=== PATIENT | male | born 1975 | race Caucasian/White ===

== ENCOUNTER 2019-05-12 17:11 | Emergency (ER) | payer OTHER ==
[~2019-05-12] VITALS: Ht 177.8 cm; Wt 83.9 kg
[2019-05-12 17:29] VITALS: BP 153/94
[2019-05-12] MEDS ORDERED: ENTIVIO (17:33)
[2019-05-12] MEDS ORDERED: RAYOS5 MG PO (17:33)
[2019-05-12] MEDS ORDERED: PERCOCET 5-3251 EACH PO (17:56)
== END 2019-05-12 18:05 | disposition home or self-care (01) ==
LOC: M.ERS 17:11
DX: R10.31 Right lower quadrant pain (principal); M19.90 Unspecified osteoarthritis, unspecified site; K50.90 Crohn's disease, unspecified, without complications; Z88.6 Allergy status to analgesic agent

== ENCOUNTER 2019-07-07 22:00 | Emergency (ER) | payer OTHER ==
[~2019-07-07] VITALS: Ht 177.8 cm; Wt 83.9 kg
[~2019-07-07 22:00] MED LIST: ENTIVIO; PERCOCET 5-3251 EACH PO; RAYOS5 MG PO
[2019-07-07] MEDS ORDERED: PENICILLIN VK250 MG PO (22:19)
[2019-07-07] MEDS ORDERED: TYLENOL WITH CO1 TA1 PO (22:19)
[2019-07-07 22:28] VITALS: BP 147/91
== END 2019-07-07 22:31 | disposition home or self-care (01) ==
LOC: M.ERS 22:00
DX: K08.89 Other specified disorders of teeth and supporting structures (principal); K50.90 Crohn's disease, unspecified, without complications; M19.90 Unspecified osteoarthritis, unspecified site; Z88.6 Allergy status to analgesic agent; Z88.8 Allergy status to other drugs, medicaments and biological substances

== ENCOUNTER 2019-07-21 08:28 | Inpatient (IN) | payer OTHER ==
[~2019-07-21] VITALS: Ht 177.8 cm; Wt 83.9 kg
--- NOTE | ~2019-07-21 | PROC ---
[facility] [address] [place] [address] PROCEDURE REPORT Name: MARILYN OLEA Room: [address] IN M.R.#: [id number] Admission: 07/21/19 Attend Phys: Anson Lora Discharge: 07/24/19 Date of : 79 Report #: [id number] THIS REPORT FOR: //name// cc: FAM - No family physician/PCP FAM - No family physician/PCP ~ THIS REPORT FOR: //name// For GI report, please see the Provation report in Perceptive 7 content. By: 0648Medical Records Staff [facility] /EM
[~2019-07-21 08:28] MED LIST changes: +PENICILLIN VK250 MG PO; +TYLENOL WITH CO1 TA1 PO
[2019-07-21 08:32] VITALS: BP 117/69
[2019-07-21 08:57] LABS: ABSOLUTE EOSINOPHILS 0.3 thou/uL (0.0-0.7); ABSOLUTE LYMPHOCYTES 0.9 thou/uL (0.8-5.3); ABSOLUTE MONOCYTES 0.7 thou/uL (0.0-1.2); ABSOLUTE NEUTROPHILS 8.2 thou/uL (1.6-8.1); BASOPHILS 0.4 %; EOSINOPHILS 2.5 %; HEMATOCRIT 40.2 % (42.0-52.0); HEMOGLOBIN 13.3 gm/dL (14.0-18.0); LYMPHOCYTES 8.7 %; MCH 24.7 pg (26.0-34.0); MCV 74.8 fL (80.0-100.0); MONOCYTES 7.2 %; MPV 8.5 fl. (7.2-11.1); NUCLEATED RBCS 0 /100WBC; PLATELET COUNT* 281 thou/uL (150-400); POLYS 81.2 %; RBC 5.37 mil/uL (4.50-6.00); RDW-CV 17.2 % (10.5-14.5)
[2019-07-21 09:06] LABS: CALCIUM 8.3 mg/dL (8.5-10.1); CREATININE 1.2 mg/dL (0.6-1.3); POTASSIUM 4.1 mmol/L (3.5-5.1)
[2019-07-21 09:10] LABS: ALBUMIN 3.4 g/dL (3.4-5.0); TOTAL BILIRUBIN 0.6 mg/dL (<0.1-1.0); TOTAL PROTEIN 7.9 g/dL (6.4-8.2)
[2019-07-21 10:49] VITALS: BP 137/90
[2019-07-21 11:12] VITALS: BP 140/83
[2019-07-21 20:00] VITALS: BP 126/88
[2019-07-22 08:25] VITALS: BP 106/57
[2019-07-22 16:00] VITALS: BP 105/67
[2019-07-22 20:00] VITALS: BP 97/52
[2019-07-23 02:08] LABS: HEPATITIS B SURFACE AG Negative (Negative)
[2019-07-23 07:55] VITALS: BP 114/73
[2019-07-23 14:40] LABS: ALBUMIN 3.1 g/dL (3.4-5.0); CALCIUM 8.5 mg/dL (8.5-10.1); CREATININE 1.1 mg/dL (0.6-1.3); POTASSIUM 4.2 mmol/L (3.5-5.1); TOTAL BILIRUBIN 0.3 mg/dL (<0.1-1.0); TOTAL PROTEIN 7.3 g/dL (6.4-8.2)
[2019-07-23 16:00] VITALS: BP 119/67
[2019-07-23 20:10] VITALS: BP 108/63
[2019-07-24 08:00] VITALS: BP 127/87
[2019-07-24] MEDS ORDERED: OMEPRAZOLE40 MG PO (08:23)
[2019-07-24] MEDS ORDERED: PREDNISONE 10 M10 M1 PO (08:23)
[2019-07-24] MEDS ORDERED: NORCO 5-325 TA1 EAC1 PO (08:23)
[2019-07-24] MEDS ORDERED: ZOFRAN ODT4 MG PO (08:23)
[2019-07-24 08:44] VITALS: BP 108/63
--- NOTE | 2019-07-27 13:08 | PATH ---
[address] [address] PATHOLOGY RPT PROCEDURE Name: MARILYN OLEA Room: [address] IN M.R.#: [id number] Admission: 07/21/19 Date of : 79 Discharge: 07/24/19 Report #: [id number] Path Case #: [id number] [facility] Accession Number: [id number] . 01 Material submitted: . PART A: ileum - BIOPSY OF ILEUM PART B: colon - RANDOM COLON BIOPSIES . 01 Clinician provided ICD-10: K56.609 K50.90 . 01 Clinical history: . Crohn's disease. . 02 Diagnosis: A. Biopsy of ileum: - Chronic active ileitis compatible with active Crohn's disease, negative for granulomas, viral inclusions and dysplasia. See comment. . B. Random colon biopsies: - Focal fresh hemorrhage in otherwise normal colonic mucosa. . (HERLINDA:shawna; 07/26/2019) R 07/26/2019 1628 Local . 02 Comment: One of the inflamed fragments of bowel in the ileum biopsy (A) suggests colonic tissue. (HERLINDA:shawna; 07/26/2019) . 02 Electronically signed: . Fran Aguilera MD, Pathologist NPI- [id number] . 01 Gross description: . A. Received in formalin labeled "Marilyn Oela, biopsy of ileum" is a 0.8 x 0.3 x 0.1 cm aggregate of kern-brown soft tissue fragments. The specimen is submitted entirely in A1. . B. Received in formalin labeled "Marilyn Olea, random colon biopsies" is a 0.8 x 0.3 x 0.1 cm aggregate of kern-brown soft tissue fragments. The specimen is submitted entirely in B1. ([facility]; 07/25/2019) [facility] 07/25/2019 1107 Local . 02 Pathologist provided ICD-10: K52.9 . 02 [place] [address] PATHOLOGY RPT PROCEDURE Name: MARILYN OLEA Room: [address] IN [facility]#: [id number] Admission: 07/21/19 Date of : 79 Discharge: 07/24/19 Report #: [id number] Path Case #: [id number] [facility] . [id number], [id number] Specimen Comment: A courtesy copy of this report has been sent to [phone] Specimen Comment: [phone] Specimen Comment: Report sent to / DR DAVIS Performed at: [address], [place], [place] [id number] MD Amos Blanco MD Phone: [phone] Performed at: 02 [facility] [address], [place], [place] [id number] MD Fran Aguilera MD Phone: [phone]
--- NOTE | 2019-08-22 08:28 | CON ---
[address] [address] CONSULTATION Name: MARILYN OLEA Room: [address] IN ..#: [id number] Admission: 07/21/19 Attend Phys: Anson Lora Discharge: 07/24/19 Date of : 79 Report #: [id number] THIS REPORT FOR: //name// cc: JOSEPH Danielle family physician/PCP JOSEPH - No family physician/PCP ~ THIS REPORT FOR: //name// CC: [facility] physician/PCP Casper Merlos DATE OF SERVICE: 07/21/2019 HISTORY OF PRESENT ILLNESS: This is a pleasant 44-year-old gentleman with past medical history significant for Crohn's disease, who gets treatment in [place], who is presenting for evaluation. The patient reports that he was initially diagnosed with Crohn's disease in 1996, initially placed on Pentasa and 6-MP. The patient was subsequently switched over to Remicade and although it worked well his insurance company refused to go to doctor six months. The patient was then switched over to Humira, which he apparently failed and finally, the patient was placed on Entyvio 2 months back. The patient received 3 doses of Entyvio 2 months back and moved to [facility]. However, due to the pandemic situation, cancellation of flights, he was unable to travel back and has been stuck here for the last few months without any medication. PAST MEDICAL HISTORY: The patient has a history of Crohn's disease. PAST SURGICAL HISTORY: The patient had 3 bowel resections for his Crohn's disease. FAMILY HISTORY: Mother has breast cancer, dad with diabetes mellitus. SOCIAL HISTORY: The patient smokes 1-2 cigarettes per day. Reports alcohol a few times a month. Denies recreational drug use. PHYSICAL EXAMINATION: VITAL SIGNS: Temperature 37.2, pulse rate 86, respirations 19, blood pressure 140/83, pulse ox 95%. GENERAL: The patient is alert, awake, oriented x 3. HEENT: Pupils are equal, round, reactive to light and accommodation. Mucous membranes are moist. There is no congestion. LUNGS: Clear to auscultation bilaterally. CARDIOVASCULAR: Rate and rhythm regular, S1, S2 present. ABDOMEN: Soft. There is no distention, guarding or rigidity. EXTREMITIES: Warm. LABORATORY DATA: Hemoglobin 13.3, hematocrit 40.2, platelet count 281, [place] [address] CONSULTATION Name: MARILYN OLEA Room: [address]#: [id number] Admission: 07/21/19 Attend Phys: Anson Lora Discharge: 07/24/19 Date of : 79 Report #: [id number] count 10.0. Sodium 137, potassium 4.1, chloride 102, bicarbonate 29, BUN 12, creatinine 1.2, bilirubin 0.6, AST 29, ALT 26, alkaline phosphatase 106, lipase 115. IMAGING: Abdomen and pelvis CT, this demonstrates post-surgical changes of the more distal small bowel resection with an ileocolonic anastomosis. There is an abnormal mural thickening of the neoterminal ileum with short area of luminal narrowing, which is causing upstream dilation of small bowel, suspicious for active inflammation of Crohn's disease. Focal area of tissue nodularity adjacent to the neoterminal ileum, likely representing inflammatory process, indeterminate right adrenal nodule, distended gallbladder, mild pelvic ascites. ASSESSMENT AND PLAN: Pleasant 44-year-old gentleman with history of ileocolonic Crohn's disease, status post multiple bowel resections. The patient was recently started on Entyvio, received 3 doses and could not take further treatment because he stay out of [place] and has had to travel to the [facility] area. We will need to proceed with colonoscopy to evaluate the extent of the disease and get some biopsies. The patient does want to move here permanently. Therefore, I would recommend starting him on biologic as outpatient. I would like to re-induce him on Remicade if that is possible. For now, I will start the patient on IV steroids to be transitioned to p.o. when his abdominal pain reduces. Thank you for this consultation. <ELECTRONICALLY SIGNED> By: Justo Nolan MD 08/22/19 0828 1517 [id number] Nolan MD /nt
== END 2019-07-24 09:00 | disposition home or self-care (01) | DRG 386 ==
LOC: M.ERS 08:28 → M.TBA-ER 10:12 → M.3W 10:12
PROVIDERS: Family Medicine; Internal Medicine Gastroenterology; ADMIT Internal Medicine; ATTEND Internal Medicine
PROC: 0DBE8ZX Excision of Large Intestine, Via Natural or Artificial Opening Endoscopic, Diagnostic (ICD-10-PCS; principal; 2019-07-23)
DX: K50.012 Crohn's disease of small intestine with intestinal obstruction (principal); R18.8 Other ascites; M19.90 Unspecified osteoarthritis, unspecified site; D64.9 Anemia, unspecified; K63.89 Other specified diseases of intestine; K82.8 Other specified diseases of gallbladder; K40.90 Unilateral inguinal hernia, without obstruction or gangrene, not specified as recurrent; D35.00 Benign neoplasm of unspecified adrenal gland; Z88.8 Allergy status to other drugs, medicaments and biological substances; Z80.3 Family history of malignant neoplasm of breast; Z83.3 Family history of diabetes mellitus; Z90.49 Acquired absence of other specified parts of digestive tract; Z79.899 Other long term (current) drug therapy

== ENCOUNTER 2019-08-22 16:03 | Inpatient (IN) | payer OTHER ==
[~2019-08-22] VITALS: Ht 177.8 cm; Wt 74.8 kg
[~2019-08-22 16:03] MED LIST changes: +NORCO 5-325 TA1 EAC1 PO; +OMEPRAZOLE40 MG PO; +PREDNISONE 10 M10 M1 PO; +ZOFRAN ODT4 MG PO
[2019-08-22 16:07] VITALS: BP 188/86
[2019-08-22] MEDS ORDERED: ONDANSETRON HCL4 M2 PO (16:10)
[2019-08-22 16:42] LABS: ABSOLUTE BASOPHILS 0.1 thou/uL (0.0-0.2); ABSOLUTE EOSINOPHILS 0.2 thou/uL (0.0-0.7); ABSOLUTE LYMPHOCYTES 0.9 thou/uL (0.8-5.3); ABSOLUTE MONOCYTES 0.5 thou/uL (0.0-1.2); ABSOLUTE NEUTROPHILS 3.9 thou/uL (1.6-8.1); BASOPHILS 0.9 %; EOSINOPHILS 4.3 %; HEMATOCRIT 40.5 % (42.0-52.0); HEMOGLOBIN 13.2 gm/dL (14.0-18.0); MCHC 32.7 g/dL (28.0-37.0); MCV 76.4 fL (80.0-100.0); MONOCYTES 8.2 %; MPV 8.7 fl. (7.2-11.1); NUCLEATED RBCS 0 /100WBC; PLATELET COUNT* 278 thou/uL (150-400); POLYS 70.6 %; RDW-CV 18.8 % (10.5-14.5); WBC 5.5 thou/uL (4.0-11.0)
[2019-08-22 16:50] LABS: CALCIUM 8.3 mg/dL (8.5-10.1); CREATININE 1.2 mg/dL (0.6-1.3); POTASSIUM 4.9 mmol/L (3.5-5.1)
[2019-08-22 16:54] LABS: ALBUMIN 3.4 g/dL (3.4-5.0); TOTAL BILIRUBIN 0.4 mg/dL (<0.1-1.0); TOTAL PROTEIN 7.8 g/dL (6.4-8.2)
[2019-08-22 19:47] VITALS: BP 137/86
[2019-08-22 20:00] VITALS: BP 161/103
--- NOTE | 2019-08-23 05:09 | NUR ---
PT A&OX4, ON ROOM AIR, VSS, PT UP AD LUKE, PT NPO AND IV FLUIDS INFUSING ORDERED. PAIN MEDS REQUESTED AND GIVEN ORDERED.
[2019-08-23 07:30] VITALS: BP 121/82
[2019-08-23 11:30] VITALS: BP 128/76
[2019-08-23 15:00] VITALS: BP 125/87
--- NOTE | 2019-08-23 15:18 | CON ---
[address] [address] CONSULTATION Name: MARILYN OLEA Room: [address] IN .R.#: [id number] Admission: 08/22/19 Attend Phys: Franklin Harrison Discharge: Date of : 79 Report #: [id number] THIS REPORT FOR: //name// cc: JOSEPH Danielle family physician/PCP JOSEPH - No family physician/PCP ~ THIS REPORT FOR: //name// CC: JOSEPH physician/PCP Sai Camacho DICTATED BY: Teresa WILSONP DATE OF SERVICE: 08/23/2019 The patient does not have a PCP at this time. REASON FOR CONSULTATION: Crohn's flare, abdominal pain. HISTORY OF PRESENT ILLNESS: This is a 44-year-old male who recently moved here from [place]. The patient was seen on 07/18 with Crohn's flare. He was initially diagnosed with Crohn's back in 1996. He was initially placed on Pentasa and 6-MP. He subsequently switched over to Remicade and he states it was working well for him back in 2011 and then his insurance quit paying for it. He was then switched over to Humira, which apparently he failed and then placed on Entyvio, his last dose being in April prior to leaving [place]. He had received 4 doses as of April and then because of the pandemic and unable to get a flight, he had been without his medication, prompting an admission, the first part of July. At that time, he was placed on prednisone with a taper and underwent a colonoscopy at that time. He states he was doing well on the prednisone. He recently tapered completely off of it a couple of weeks ago and then his pain started back this past week. He had not had a followup in our office and he has not found a PCP as of yet. He was started on Solu-Medrol in the Emergency Room and has continued with that. He is feeling much better. Currently, bowels are moving. He has moved twice a day. He had not had any increase in urgency prior to this admission; however, back when he was doing the Entyvio, he states his bowels were 6-7 up to 10 times a day, still when he just received his fourth dose. ALLERGIES: INCLUDE NSAIDS AND TORADOL. PAST MEDICAL HISTORY: Crohn's disease. PAST SURGICAL HISTORY: He has had 3 bowel resections in the past. FAMILY HISTORY: [place] [address] CONSULTATION Name: MARILYN OLEA Room: [address]#: [id number] Admission: 08/22/19 Attend Phys: Franklin Harrison Discharge: Date of : 79 Report #: [id number] SOCIAL HISTORY: Smokes a couple of cigarettes a day. No alcohol in the last several months and denies any recreational drug use. REVIEW OF SYSTEMS: Twelve-point review of systems is essentially negative except what is mentioned in the HPI. PHYSICAL EXAMINATION: VITAL SIGNS: Temperature 36.7, pulse 91, respirations 18, blood pressure 121/82. HEART: Regular rate and rhythm. LUNGS: Clear. ABDOMEN: Soft, positive bowel sounds in all 4 quadrants with tenderness noted in the right mid to right lower quadrant area. Pain rated 4-5 has significantly improved since his admission and starting the steroids. NEUROLOGIC: The patient is wanting to go home. LABORATORY DATA: In reviewing the last note, it was recommended to get a small bowel follow through as an outpatient. CT on admission showed marked thickening and inflammation of the distal ileum with a large amount of stool. IMPRESSION: 1. Abdominal pain. 2. Change in bowel habits. 3. Crohn's flare. 4. Family history of breast cancer. PLAN: 1. We will increase his diet to clear liquids and advance as tolerated to a low residue. 2. Increase his Solu-Medrol 60 mg IV q. 12 hours. 3. May consider small bowel follow through, possibly tomorrow in a.m. 4. We will discuss with Dr. Nolan further. 5. We will look at benefits of investigation for possible Stelara. 6. The patient will need Prometheus labs upon discharge. Thank you for allowing us to participate in this patient's care. Please do not hesitate to call with any questions in regard to this consult. Agree with above assessment and plan by Teresa Edwards <ELECTRONICALLY SIGNED> By: Justo Nolan MD 08/23/19 1518 1017 [id number] Nolan MD /nt
--- NOTE | 2019-08-23 17:29 | NUR ---
PATIENT HAS DONE WELL TODAY. HE HAD A LARGE FORMED BM THIS MORNING AND HAS ACTIVE BOWEL SOUNDS. NO VOMITING SINCE HE STARTED EATING. HE RECEIVED CLEARS AND IS NOW ON A LOW RESIDUE DIET. HIS WAS HERE MOST OF THE DAY AND HE DID COMPLAIN OF INCREASED PAIN EARLIER AND I PLACED A MESSAGE TO DR MURILLO. HE REFUSED TO GIVE HIM ANY MORE PAIN MEDICATION BECAUSE HE IS PROBABLY GOING HOME TOMORROW. NO DISTRESS HE IS EATING NOW.
[2019-08-23 21:52] VITALS: BP 116/75
--- NOTE | 2019-08-24 05:47 | NUR ---
PATIENT HAS SLEPT OFF AND ON DURING THE NIGHT. VSS ON RA. MEDICATIONS GIVEN ORDERED AND CHARTED. IV PAIN MEDICATIONS GIVEN ORDERED. PATIENT IS UP AD-LUKE. NO NAUSEA OR VOMITING. IV IN LEFT FOREARM-NS @ 100ML/HR. PATIENT INSTRUCTED TO USE CALL LIGHT WHEN NEEDING ASSISTANCE. HOURLY ROUNDS MADE. WILL CONTINUE WITH PLAN OF CARE AND NURSING TO MONITOR.
[2019-08-24 08:56] VITALS: BP 115/81
[2019-08-24] MEDS ORDERED: PREDNISONE 10 M10 MG PO (11:01)
[2019-08-24 11:21] VITALS: BP 115/81
[2019-08-24 11:24] VITALS: BP 115/81
--- NOTE | 2019-08-24 11:39 | NUR ---
PATIENT ONLY HAD ONE PAIN PILL THIS SHIFT FOR PAIN OF 4/10. HE JUST DISCHARGED HOME. HE AND SPOUSE BOTH VERBALIZED UNDERSTANDING OF ALL DISCHARGE INSTRUCTIONS AND THE NEW MEDICATION. I DID PROVIDE THEM WITH THE PHONE NUMBER AND ADDRESS TO [facility] IN [place]. 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 HE DID REFUSE A WHEELCHAIR AND AMBULATED OUT WITH HIS . NO DISTRESS OR COMPLAINTS OF PAIN AT TIME OF DISCHARGE.
== END 2019-08-24 11:43 | disposition home or self-care (01) | DRG 386 ==
LOC: M.ERS 16:03 → M.ORTHSURG 18:08 → M.TBA-ER 18:08 → M.ORTHSURG 19:53
PROVIDERS: Emergency Medicine Emergency Medical Services; ADMIT Internal Medicine; ATTEND Internal Medicine
DX: K50.90 Crohn's disease, unspecified, without complications (principal); K56.609 Unspecified intestinal obstruction, unspecified as to partial versus complete obstruction; I10 Essential (primary) hypertension; M19.90 Unspecified osteoarthritis, unspecified site; Z79.899 Other long term (current) drug therapy; Z88.8 Allergy status to other drugs, medicaments and biological substances; Z03.818 Encounter for observation for suspected exposure to other biological agents ruled out

== ENCOUNTER 2019-10-12 10:59 | Emergency (ER) | payer OTHER ==
[~2019-10-12] VITALS: Ht 177.8 cm; Wt 81.7 kg
[~2019-10-12 10:59] MED LIST changes: +ONDANSETRON HCL4 M2 PO; +PREDNISONE 10 M10 MG PO
[2019-10-12] MEDS ORDERED: [UNRECOGNIZED DRUG - OTHER] (11:09)
[2019-10-12 11:30] LABS: HEMATOCRIT 43.1 % (42.0-52.0); HEMOGLOBIN 13.9 gm/dL (14.0-18.0); MCH 24.8 pg (26.0-34.0); MCHC 32.2 g/dL (28.0-37.0); MCV 77.1 fL (80.0-100.0); MPV 8.8 fl. (7.2-11.1); NUCLEATED RBCS 0 /100WBC; PLATELET COUNT* 258 thou/uL (150-400); RBC 5.59 mil/uL (4.50-6.00)
[2019-10-12 11:48] LABS: ALBUMIN 3.3 g/dL (3.4-5.0); ALKALINE PHOSPHATASE 65 U/L (46-116); ANION GAP 6 mmol/L (7-16); BUN < 1 mg/dL (7-18); CALCIUM 8.2 mg/dL (8.5-10.1); CHLORIDE 100 mmol/L (98-107); CO2 27 mmol/L (21-32); GLUCOSE 114 mg/dL (70-99); LIPASE 120 U/L (73-393); POTASSIUM 4.2 mmol/L (3.5-5.1); SGOT 19 U/L (15-37); SGPT 27 U/L (30-65); SODIUM 133 mmol/L (136-145); TOTAL BILIRUBIN 0.5 mg/dL (<0.1-1.0); TOTAL PROTEIN 7.3 g/dL (6.4-8.2)
[2019-10-12 12:16] LABS: ABSOLUTE LYMPHOCYTES 1.1 thou/uL (0.8-5.3); ABSOLUTE MONOCYTES 0.5 thou/uL (0.0-1.2); ABSOLUTE NEUTROPHILS 13.5 thou/uL (1.6-8.1); PLATELET ESTIMATE ADEQUATE
[2019-10-12 14:02] LABS: URINE BLOOD NEGATIVE (Negative); URINE CLARITY CLEAR; URINE COLOR YELLOW; URINE GLUCOSE-RANDOM NEGATIVE (Negative); URINE KETONES NEGATIVE (Negative); URINE LEUKOCYTES-REFLEX NEGATIVE (Negative); URINE NITRITE-REFLEX NEGATIVE (Negative); URINE PROTEIN NEGATIVE (Negative); URINE SPECIFIC GRAVITY <= 1.005 (1.005-1.030); URINE UROBILINOGEN 0.2 E.U./dl (0.2-1.0)
[2019-10-12] MEDS ORDERED: ZOFRAN ODT4 MG PO (14:02)
[2019-10-12] MEDS ORDERED: NORCO 5-325 TA1 EAC2 PO (14:02)
[2019-10-12 14:06] VITALS: BP 116/74
[2019-10-12 14:06] LABS: ICTOTEST (BILI CONFIRMATORY) Negative (Negative); URINE BILIRUBIN 1+ (Negative)
[2019-10-12 14:29] LABS: AMP/METHAMP Negative (Negative); BARBITURATES Negative (Negative); BENZODIAZEPINES Negative (Negative); COCAINE Negative (Negative); METHADONE Negative (Negative); OPIATES Negative (Negative); PCP Negative (Negative); THC Negative (Negative)
== END 2019-10-12 14:07 | disposition home or self-care (01) ==
LOC: M.ERS 10:59
PROVIDERS: Nurse Practitioner Family
DX: R10.84 Generalized abdominal pain (principal); R10.31 Right lower quadrant pain; K50.90 Crohn's disease, unspecified, without complications; M19.90 Unspecified osteoarthritis, unspecified site; Z88.6 Allergy status to analgesic agent; Z88.8 Allergy status to other drugs, medicaments and biological substances

== ENCOUNTER 2019-11-11 20:50 | Emergency (ER) | payer OTHER ==
[~2019-11-11] VITALS: Ht 177.8 cm; Wt 83.9 kg
[~2019-11-11 20:50] MED LIST changes: +NORCO 5-325 TA1 EAC2 PO; +[UNRECOGNIZED DRUG - OTHER]
[2019-11-11] MEDS ORDERED: TRAMADOL 50 MG50 MG PO (21:02)
[2019-11-11 21:58] LABS: HEMATOCRIT 40.3 % (42.0-52.0); HEMOGLOBIN 13.6 gm/dL (14.0-18.0); MCH 25.6 pg (26.0-34.0); MCHC 33.8 g/dL (28.0-37.0); MCV 75.7 fL (80.0-100.0); NUCLEATED RBCS 0 /100WBC; PLATELET COUNT* 292 thou/uL (150-400); RBC 5.32 mil/uL (4.50-6.00); RDW-CV 18.3 % (10.5-14.5)
[2019-11-11 22:05] LABS: CALCIUM 8.7 mg/dL (8.5-10.1)
[2019-11-11 22:10] LABS: ALBUMIN 3.3 g/dL (3.4-5.0); TOTAL BILIRUBIN 0.3 mg/dL (<0.1-1.0); TOTAL PROTEIN 7.1 g/dL (6.4-8.2)
[2019-11-11 22:29] LABS: ABSOLUTE EOSINOPHILS 0.1 thou/uL (0.0-0.7); ABSOLUTE LYMPHOCYTES 0.5 thou/uL (0.8-5.3); ABSOLUTE MONOCYTES 0.1 thou/uL (0.0-1.2); ABSOLUTE NEUTROPHILS 6.3 thou/uL (1.6-8.1); ANISOCYTOSIS 1+
[2019-11-11 22:30] LABS: MICROCYTES 1+; OVALOCYTES Occasional; PLATELET ESTIMATE ADEQUATE
[2019-11-11 23:48] LABS: URINE BILIRUBIN NEGATIVE (Negative); URINE BLOOD NEGATIVE (Negative); URINE CLARITY CLEAR; URINE COLOR YELLOW; URINE GLUCOSE-RANDOM NEGATIVE (Negative); URINE KETONES NEGATIVE (Negative); URINE LEUKOCYTES-REFLEX NEGATIVE (Negative); URINE NITRITE-REFLEX NEGATIVE (Negative); URINE PROTEIN NEGATIVE (Negative); URINE SPECIFIC GRAVITY 1.025 (1.005-1.030); URINE UROBILINOGEN 0.2 E.U./dl (0.2-1.0)
[2019-11-12] MEDS ORDERED: PERCOCET 5-3251 EACH PO (00:16)
[2019-11-12 00:39] VITALS: BP 140/93
== END 2019-11-12 00:40 | disposition home or self-care (01) ==
LOC: M.ERS 20:50
PROVIDERS: Personal Emergency Response Attendant
DX: K50.90 Crohn's disease, unspecified, without complications (principal); M19.90 Unspecified osteoarthritis, unspecified site; Z88.6 Allergy status to analgesic agent

== ENCOUNTER 2019-11-16 14:03 | Inpatient (IN) | payer OTHER ==
[~2019-11-16] VITALS: Ht 177.8 cm; Wt 83.9 kg
--- NOTE | ~2019-11-16 | CON ---
[address] [address] CONSULTATION Name: MARILYN OLEA Room: [address] IN .R.#: [id number] Admission: 11/16/19 Attend Phys: Royce Vyas, Discharge: Date of : 79 Report #: [id number] THIS REPORT FOR: //name// cc: JOSEPH - No family physician/PCP JOSEPH - No family physician/PCP ~ THIS REPORT FOR: //name// CC: [facility] physician/PCP Royce Vyas DICTATED BY: Teresa Edwards [facility] DATE OF SERVICE: 11/17/2019 PRIMARY CARE PHYSICIAN: The patient does not have a PCP. Please note at the time of this dictation, the patient was seen and physically examined by myself. REASON FOR CONSULTATION: Abdominal pain, history of Crohn's disease. HISTORY OF PRESENT ILLNESS: This is a 44-year-old male who has a longstanding history of Crohn's disease that was diagnosed back in 1996, who started his treatment back in [place] and recently moved to the area. The patient was initially diagnosed with Crohn's disease in 1996. He was placed on Pentasa and 6-MP at that time, subsequently switched over to Remicade. However, it was working well for him, insurance company refused to go to pay for it since he would not go to the doctor. The patient was then switched over to Humira and he apparently failed that, finally was placed on Entyvio prior to moving to the [facility] and with the pandemic, he never went back to get any further medications. His last dose of Entyvio was back in February of this year. He was admitted in July and then again in August and now subsequently the end of October. He had been off of his steroids when he was admitted in July. We were getting him approved for Stelara. He did receive his induction dose of Stelara and then has subsequently got his first injection on 11/12 of his first maintenance dose. He states he was doing well. No issues. Bowels are moving at least once a day. Then, yesterday a.m., he started having some issues. He had some intermittent pain. He did have a normal bowel movement yesterday morning, but none since. He did have vomiting one time with no bright red blood or coffee-ground emesis. He states his stool yesterday was completely normal with no bright red blood or melena noted. He did have the one episode of vomiting and is felt nauseous with bloating. He is not passing any gas at this time. He does describe his pain as being intermittent at this time. His last colon was back in 2018 in [place]. ALLERGIES: [place] [address] CONSULTATION Name: MARILYN OLEA Room: [address] IN M.R.#: [id number] Admission: 11/16/19 Attend Phys: Royce Vyas, Discharge: Date of : 79 Report #: [id number] MEDICATIONS FROM HOME: Stelara. PAST MEDICAL HISTORY: Crohn's in 1996 and arthritis. PAST SURGICAL HISTORY: He has had three small bowel resections noted in the past. FAMILY HISTORY: Mother had breast cancer. Dad with diabetes. SOCIAL HISTORY: He smokes 1-2 cigarettes per day. Alcohol, a few times a month. Denies any recreational drug use. REVIEW OF SYSTEMS: Twelve-point review of systems is essentially negative except what is mentioned in the HPI. PHYSICAL EXAMINATION: VITAL SIGNS: Temperature 36.9, pulse 83, respirations 16, blood pressure 119/82. HEART: Regular rate and rhythm. LUNGS: Clear. ABDOMEN: Soft, positive bowel sounds with some tenderness noted in the mid upper area and bowel sounds are somewhat hypoactive. LABORATORY DATA: Hemoglobin 13.6, white count is 11.9, platelets 273,000. His MCV is low at 75. GFR is 82. LFTs are normal. Lipase was normal at 87. Alcohol is less than 10. IMAGING: CT shows abnormal small bowel distention measuring up to 5 cm consistent with a partial small bowel obstruction with abnormal thickening and inflammatory changes extending along the small bowel wall near the anastomosis. IMPRESSION: 1. Abdominal pain, intermittent. 2. Small bowel obstruction, noted on CT. 3. Intermittent nausea and vomiting. 4. History of Crohn's. Got first Stelara maintenance dose on 11/12. PLAN: 1. Solu-Medrol 62.5 mg IV q.8h. 2. Keep n.p.o. 3. Add ESR, CRP to pending labs that have already been drawn. 4. We will medically observe for now to see if his small bowel obstruction resolves and Surgery will be on board. 5. Further recommendations to be made once Dr. Nolan sees the patient later today. [address] [address] CONSULTATION Name: MARILYN [facility] [id number] Admission: 11/16/19 Attend Phys: Royce Vyas, Discharge: Date of : 79 Report #: [id number] Thank you for allowing us to participate in this patient's care. Please do not hesitate to call with any questions in regard to this consult. By: [id number] Nolan MD /jeanne
[~2019-11-16 14:03] MED LIST changes: +TRAMADOL 50 MG50 MG PO
[2019-11-16 14:11] VITALS: BP 148/102
[2019-11-16 16:41] LABS: ABSOLUTE BASOPHILS 0.1 thou/uL (0.0-0.2); ABSOLUTE EOSINOPHILS 0.3 thou/uL (0.0-0.7); ABSOLUTE LYMPHOCYTES 0.5 thou/uL (0.8-5.3); ABSOLUTE MONOCYTES 0.9 thou/uL (0.0-1.2); BASOPHILS 0.5 %; EOSINOPHILS 2.6 %; HEMOGLOBIN 13.6 gm/dL (14.0-18.0); LYMPHOCYTES 4.6 %; MCH 25.1 pg (26.0-34.0); MCHC 33.2 g/dL (28.0-37.0); MCV 75.5 fL (80.0-100.0); MONOCYTES 7.8 %; MPV 8.6 fl. (7.2-11.1); NUCLEATED RBCS 0 /100WBC; PLATELET COUNT* 273 thou/uL (150-400); POLYS 84.5 %; RBC 5.44 mil/uL (4.50-6.00); RDW-CV 18.6 % (10.5-14.5); WBC 11.9 thou/uL (4.0-11.0)
[2019-11-16 16:55] LABS: CALCIUM 8.2 mg/dL (8.5-10.1); POTASSIUM 3.4 mmol/L (3.5-5.1)
[2019-11-16 16:59] LABS: ALBUMIN 3.3 g/dL (3.4-5.0); TOTAL BILIRUBIN 0.4 mg/dL (<0.1-1.0); TOTAL PROTEIN 6.8 g/dL (6.4-8.2)
[2019-11-16 20:57] VITALS: BP 121/79
[2019-11-16 21:01] VITALS: BP 115/82
[2019-11-17 07:10] VITALS: BP 118/76
[2019-11-17 11:42] LABS: URINE BILIRUBIN NEGATIVE (Negative); URINE BLOOD NEGATIVE (Negative); URINE CLARITY CLEAR; URINE COLOR YELLOW; URINE GLUCOSE-RANDOM NEGATIVE (Negative); URINE KETONES NEGATIVE (Negative); URINE LEUKOCYTES-REFLEX NEGATIVE (Negative); URINE NITRITE-REFLEX NEGATIVE (Negative); URINE PROTEIN NEGATIVE (Negative); URINE UROBILINOGEN 0.2 E.U./dl (0.2-1.0)
[2019-11-17 11:51] LABS: AMP/METHAMP Negative (Negative); BARBITURATES Negative (Negative); BENZODIAZEPINES Negative (Negative); COCAINE Negative (Negative); METHADONE Negative (Negative); OPIATES Negative (Negative); PCP Negative (Negative); THC Negative (Negative)
[2019-11-17 15:54] VITALS: BP 124/80
--- NOTE | 2019-11-17 17:08 | EKG ---
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: : 1975 Requested By: Arelis Roman Order Number: [id number] MD: Otoniel Coker Measurements Intervals [place] Rate: 87 P: 47 WY: 155 QRS: 42 QRSD: 147 T: -3 QT: 417 QTc: 502 Interpretive Statements Sinus rhythm Right bundle branch block Baseline wander in lead(s) V4 No previous ECG available for comparison Electronically Signed On 11-17-2019 17:08:01 CDT by Otoniel Coker [email or web address] <ELECTRONICALLY SIGNED> By: Otoniel Coker MD, [facility] 11/17/19 1708 1533 1533 Otoniel Coker MD, [facility] /EPI
[2019-11-17 19:40] VITALS: BP 121/80
[2019-11-18 05:14] LABS: HEMATOCRIT 38.4 % (42.0-52.0); HEMOGLOBIN 12.9 gm/dL (14.0-18.0); MCH 25.6 pg (26.0-34.0); MCHC 33.6 g/dL (28.0-37.0); MCV 76.1 fL (80.0-100.0); NUCLEATED RBCS 0 /100WBC; PLATELET COUNT* 292 thou/uL (150-400); RBC 5.05 mil/uL (4.50-6.00); RDW-CV 18.1 % (10.5-14.5); WBC 6.5 thou/uL (4.0-11.0)
[2019-11-18 05:19] LABS: CALCIUM 8.4 mg/dL (8.5-10.1); CREATININE 0.9 mg/dL (0.6-1.3); POTASSIUM 4.2 mmol/L (3.5-5.1)
[2019-11-18 07:04] LABS: ABSOLUTE BASOPHILS 0.1 thou/uL (0.0-0.2); ABSOLUTE LYMPHOCYTES 0.4 thou/uL (0.8-5.3); ABSOLUTE MONOCYTES 0.3 thou/uL (0.0-1.2); ABSOLUTE NEUTROPHILS 5.7 thou/uL (1.6-8.1)
[2019-11-18 07:05] LABS: GIANT PLATELETS RARE
[2019-11-18 07:06] LABS: ANISOCYTOSIS 2+; PLATELET ESTIMATE ADEQUATE
[2019-11-18 07:50] VITALS: BP 118/76
[2019-11-18 20:00] VITALS: BP 122/78
[2019-11-19 09:20] VITALS: BP 124/59
[2019-11-19] MEDS ORDERED: HYDROCODON-ACE1 EAC7 PO (10:34)
[2019-11-19] MEDS ORDERED: PREDNISONE 10 M10 MG PO (10:34)
[2019-11-19] MEDS ORDERED: CIPRO500 M1 PO (10:34)
[2019-11-19] MEDS ORDERED: FLAGYL500 M1 PO (10:34)
[2019-11-19 13:00] VITALS: BP 124/59
[2019-11-19 13:13] VITALS: BP 124/59
[2019-11-19 13:42] VITALS: BP 124/59
== END 2019-11-19 13:20 | disposition home or self-care (01) | DRG 386 ==
LOC: M.ERS 14:03 → M.ORTHSURG 18:34 → M.TBA-ER 18:34 → M.ORTHSURG 21:00 → M.3W 11-18 16:27
PROVIDERS: Internal Medicine; Nurse Practitioner Family; ADMIT Family Medicine; ATTEND Family Medicine
DX: K50.012 Crohn's disease of small intestine with intestinal obstruction (principal); R65.10 Systemic inflammatory response syndrome (SIRS) of non-infectious origin without acute organ dysfunction; Z20.828 Contact with and (suspected) exposure to other viral communicable diseases; M19.90 Unspecified osteoarthritis, unspecified site; Z88.8 Allergy status to other drugs, medicaments and biological substances; Z80.3 Family history of malignant neoplasm of breast; Z83.3 Family history of diabetes mellitus; Z87.891 Personal history of nicotine dependence; Z79.899 Other long term (current) drug therapy

== ENCOUNTER 2020-02-01 13:12 | Inpatient (IN) | payer OTHER ==
[~2020-02-01] VITALS: Ht 177.8 cm; Wt 90.7 kg
[~2020-02-01 13:12] MED LIST changes: +CIPRO500 M1 PO; +FLAGYL500 M1 PO; +HYDROCODON-ACE1 EAC7 PO
[2020-02-01 13:30] VITALS: BP 138/92
[2020-02-01 13:44] LABS: URINE BLOOD NEGATIVE (Negative); URINE CLARITY CLEAR; URINE COLOR YELLOW; URINE GLUCOSE-RANDOM NEGATIVE (Negative); URINE KETONES NEGATIVE (Negative); URINE LEUKOCYTES-REFLEX NEGATIVE (Negative); URINE NITRITE-REFLEX NEGATIVE (Negative); URINE PROTEIN NEGATIVE (Negative); URINE SPECIFIC GRAVITY >= 1.030 (1.005-1.030); URINE UROBILINOGEN 0.2 E.U./dl (0.2-1.0)
[2020-02-01 13:46] LABS: ICTOTEST (BILI CONFIRMATORY) Positive (Negative); URINE BILIRUBIN 1+ (Negative)
[2020-02-01 14:09] LABS: HEMATOCRIT 44.7 % (42.0-52.0); HEMOGLOBIN 14.7 gm/dL (14.0-18.0); MCH 26.9 pg (26.0-34.0); MCHC 32.8 g/dL (28.0-37.0); MCV 82.1 fL (80.0-100.0); MPV 8.1 fl. (7.2-11.1); NUCLEATED RBCS 0 /100WBC; PLATELET COUNT* 271 thou/uL (150-400); RBC 5.45 mil/uL (4.50-6.00); RDW-CV 19.7 % (10.5-14.5); WBC 12.1 thou/uL (4.0-11.0)
[2020-02-01 14:18] LABS: CALCIUM 8.5 mg/dL (8.5-10.1); CREATININE 1.1 mg/dL (0.6-1.3); POTASSIUM 4.3 mmol/L (3.5-5.1)
[2020-02-01 14:22] LABS: ALBUMIN 3.2 g/dL (3.4-5.0); TOTAL BILIRUBIN 0.3 mg/dL (<0.1-1.0)
[2020-02-01 14:39] LABS: ABSOLUTE BASOPHILS 0.4 thou/uL (0.0-0.2); ABSOLUTE LYMPHOCYTES 0.8 thou/uL (0.8-5.3); ABSOLUTE MONOCYTES 0.6 thou/uL (0.0-1.2); ABSOLUTE NEUTROPHILS 10.3 thou/uL (1.6-8.1); PLATELET ESTIMATE ADEQUATE
[2020-02-01 17:45] VITALS: BP 127/84
[2020-02-01 17:50] VITALS: BP 125/81
[2020-02-02 07:20] VITALS: BP 121/68
[2020-02-02 10:49] VITALS: BP 121/68
--- NOTE | 2020-02-02 14:24 | CON ---
[address] [address] CONSULTATION Name: MARILYN OLEA Room: [address] IN M.R.#: [id number] Admission: 02/01/20 Attend Phys: Franklin Harrison Discharge: 02/02/20 Date of : 79 Report #: [id number] THIS REPORT FOR: cc: FAM - No family physician/PCP FAM - No family physician/PCP ~ Darren Durán MD DATE OF SERVICE: 02/02/2020 The patient does not have a PCP. Please note at the time of this dictation, the patient was seen and physically examined by myself. REASON FOR CONSULTATION: Abdominal pain exacerbation of Crohn's disease. HISTORY OF PRESENT ILLNESS: This is a pleasant 44-year-old male who has a longstanding history of Crohn's disease that was diagnosed back in 1996 in [place]. He recently moved to the area earlier this year and had not been on any medications at that time. He has failed Pentasa and 6-MP. He had been on Remicade, which was doing really well and then insurance refused to pay for it any longer. He was switched over to Humira and failed and prior to moving to the area, he got a dose of Entyvio in February because of the pandemic, he refused to get anymore at that time. He has been on steroids orally since spring time in which he has been in and out of the hospital. When he tapers off his steroids usually within the week or less, he starts having significant abdominal pain, which shows a partial small-bowel obstruction at the terminal ileum area where his disease is. He got a dose of IV steroids in the ER yesterday for his pain that he rated at 10/10. He gets very bloated when this occurs and after that steroid shot his symptoms have improved. He has no nausea or vomiting. His pain ranges between a 4 and 5 currently, which is what normally is for him and that he has had a bowel movement today. Yesterday, he did not have a bowel movement, which prompted him to come in to the Emergency Room. The patient was seen by Dr. Nolan on Friday in the office, he had just come off his steroids over the weekend. Today was day #5 of being off the steroids and he states that normally this is about when it occurs after he has been off the steroids. In talking with Dr. Nolan we will place him back on his oral steroids. He is scheduled for a colonoscopy the end of this month and he wants to keep it from that date as well. The patient has received 3 Stelara injections including his bolus infusion. His next Stelara injection is due on 03/04, prior to that, he will get some Prometheus labs, Crohn's monitoring and antibody testing regarding Stelara. ALLERGIES: [place] [address] CONSULTATION Name: MARILYN OLEA Room: [address] IN M.R.#: [id number] Admission: 02/01/20 Attend Phys: Franklin Harrison Discharge: 02/02/20 Date of : 79 Report #: [id number] MEDICATIONS FROM HOME: Stelara. PAST MEDICAL HISTORY: Crohn's disease, abdominal pain, history of small bowel obstructions. PAST SURGICAL HISTORY: He has had 3 resections done in the past. FAMILY HISTORY: Mother, breast cancer. SOCIAL HISTORY: Denies any alcohol, tobacco or illegal drug use at the present time and has a significant other. PHYSICAL EXAMINATION: VITAL SIGNS: Temperature 35.9, pulse 75, respirations 16, blood pressure 121/68. HEART: Regular rate and rhythm. LUNGS: Diminished, but clear. ABDOMEN: Soft, positive bowel sounds in all 4 quadrants with tenderness noted in the right lower quadrant. LABORATORY DATA: ESR is 8. CRP is 23.3. White count is 12.1, hemoglobin is 14.7, platelets are 271. LFTs are normal. Lipase is normal at 199. CT scan shows consistent with Crohn's flare with partial small-bowel obstruction, similar to prior exam with fluid filled distention of the small bowel and marked mucosal thickening and inflammatory changes at the TI. IMPRESSION: 1. Abdominal pain, improved. 2. Abnormal CT with changes at the TI. 3. Crohn's disease, steroid dependent. PLAN: 1. We will place the patient on prednisone 40 mg for one week and then a 10 mg taper weekly. 2. Colon scheduled for 02/16/[address] Nolan. 3. The patient is instructed that if he has any further pain or changes in his bowel habits to call the office since he is currently on a steroid taper and further recommendations will be made after his next colonoscopy. [address] [address] CONSULTATION Name: MARILYN OLEA Room: [address] IN M.R.#: [id number] Admission: 02/01/20 Attend Phys: Franklin Harrison Discharge: 02/02/20 Date of : 79 Report #: [id number] Thank you for allowing us to participate in this patient's care. Please do not hesitate to call with any questions in regard to this consult. <ELECTRONICALLY SIGNED> By: Darren Durán MD 02/02/20 1424 0955 1024Fargerman Durán MD /nt
== END 2020-02-02 13:43 | disposition home or self-care (01) | DRG 386 ==
LOC: M.ERS 13:12 → M.TBA-ER 16:15 → M.3W 16:15
PROVIDERS: Family Medicine; ADMIT Internal Medicine; ATTEND Internal Medicine
DX: K50.012 Crohn's disease of small intestine with intestinal obstruction (principal); R65.10 Systemic inflammatory response syndrome (SIRS) of non-infectious origin without acute organ dysfunction; M19.90 Unspecified osteoarthritis, unspecified site; F12.90 Cannabis use, unspecified, uncomplicated; F17.200 Nicotine dependence, unspecified, uncomplicated; Z20.828 Contact with and (suspected) exposure to other viral communicable diseases; Z90.49 Acquired absence of other specified parts of digestive tract; Z79.899 Other long term (current) drug therapy; Z88.8 Allergy status to other drugs, medicaments and biological substances

== ENCOUNTER 2020-04-07 19:24 | Inpatient (IN) | payer OTHER ==
[~2020-04-07] VITALS: Ht 177.8 cm; Wt 90.7 kg
[2020-04-07 19:30] VITALS: BP 192/116
[2020-04-07 19:42] LABS: URINE BILIRUBIN NEGATIVE (Negative); URINE BLOOD TRACE (Negative); URINE CLARITY CLEAR; URINE COLOR YELLOW; URINE GLUCOSE-RANDOM NEGATIVE (Negative); URINE KETONES NEGATIVE (Negative); URINE LEUKOCYTES-REFLEX NEGATIVE (Negative); URINE NITRITE-REFLEX NEGATIVE (Negative); URINE PROTEIN NEGATIVE (Negative); URINE SPECIFIC GRAVITY >= 1.030 (1.005-1.030); URINE UROBILINOGEN 0.2 E.U./dl (0.2-1.0)
[2020-04-07 20:06] LABS: ABSOLUTE EOSINOPHILS 0.4 thou/uL (0.0-0.7); ABSOLUTE LYMPHOCYTES 1.2 thou/uL (0.8-5.3); ABSOLUTE MONOCYTES 0.8 thou/uL (0.0-1.2); ABSOLUTE NEUTROPHILS 4.9 thou/uL (1.6-8.1); BASOPHILS 0.6 %; EOSINOPHILS 5.9 %; HEMATOCRIT 40.9 % (42.0-52.0); LYMPHOCYTES 15.9 %; MCH 28.6 pg (26.0-34.0); MCHC 34.2 g/dL (28.0-37.0); MCV 83.6 fL (80.0-100.0); MONOCYTES 10.8 %; MPV 8.8 fl. (7.2-11.1); NUCLEATED RBCS 0 /100WBC; PLATELET COUNT* 222 thou/uL (150-400); POLYS 66.8 %; RBC 4.89 mil/uL (4.50-6.00); RDW-CV 17.4 % (10.5-14.5); WBC 7.4 thou/uL (4.0-11.0)
[2020-04-07 20:12] LABS: CALCIUM 8.5 mg/dL (8.5-10.1); CREATININE 1.2 mg/dL (0.6-1.3); POTASSIUM 3.6 mmol/L (3.5-5.1)
[2020-04-07 20:16] LABS: ALBUMIN 3.4 g/dL (3.4-5.0); TOTAL BILIRUBIN 0.4 mg/dL (<0.1-1.0); TOTAL PROTEIN 6.9 g/dL (6.4-8.2)
[2020-04-07] MEDS ORDERED: HYDROCODON-ACE1 EAC7 PO (22:22)
[2020-04-07] MEDS ORDERED: PREDNISONE 10 M10 M1 PO (22:22)
[2020-04-07] MEDS ORDERED: ZOFRAN ODT4 MG PO (22:22)
[2020-04-08 00:43] VITALS: BP 131/87
--- NOTE | 2020-04-08 04:31 | NUR ---
PT ARRIVED TO THE UNIT AT 0045. A&O. NO C/O PAIN. NPO. IVF INFUISING ORDERED. UP INDEPENDENTLY. WILL CONTINUE TO MONITOR.
[2020-04-08 09:13] LABS: CALCIUM 9.1 mg/dL (8.5-10.1); CREATININE 1.1 mg/dL (0.6-1.3); POTASSIUM 4.8 mmol/L (3.5-5.1)
[2020-04-08 09:22] VITALS: BP 144/91
--- NOTE | 2020-04-08 10:08 | EKG ---
[place] [address] ELECTROCARDIOGRAM REPORT Name: MARILYN OLEA Room: [address] ADM IN [facility]#: [id number] Admission: 04/07/20 Attend Phys: Casper Merlos Discharge: Date of : 79 Date of Service: 04/07/202055 Report #: [id number] THIS REPORT FOR: //name// [facility] ED Test Date: 2020-04-07 Test Time: 20:56:04 Pat Name: MARILYN OLEA Department: Room: [facility] Gender: M Saturator Operator: PRAVEENA : 1975 Requested By: Shreya Sheriff Order Number: [id number] MD: Ryan Bernal Measurements Intervals [place] Rate: 85 P: 36 HI: 180 QRS: 12 QRSD: 159 T: -10 QT: 415 QTc: 494 Interpretive Statements Sinus rhythm Right bundle branch block Compared to ECG 11/16/2019 15:33:21 No significant changes Electronically Signed On 04-08-2020 10:08:32 METAL PRECISION MACHINE ASSEMBLER by Ryan Bernal [email or web address] <ELECTRONICALLY SIGNED> By: Ryan Bernal MD, FACC 04/08/20 1008 55 55 Ryan Bernal MD, [facility] /EPI
--- NOTE | 2020-04-08 13:16 | NUR ---
CM SPOKE TO THE PT TO DISCUSS CM ASSESSMENT. PT A&O, AND INDEPENDENT WITH ADL'S. PT USES 0 DME. PT HAS 0 HX OF HH OR SNF. NO CM D/C PLANNING NEEDS ANTICIPATED. CM WILL REMAIN AVAILABLE TO ASSIST AND FOLLOW NEEDED.
[2020-04-08 15:33] VITALS: BP 136/95
--- NOTE | 2020-04-08 18:45 | NUR ---
PT ALERT AND ORIENTEDX4 RESTED T/O DAY PT STATED BMS ARE FORMED NO LONGER DIARRHEA NOW PT ALSO STATED HE HAD CDIFF ONE TIME BACK IN THE 90S THAT WAS IT HE HAS TRIED MANY MEDS FOR HIS CROHN'S SOME WORK FOR A SHORT PERIOD OF TIME AND OTHERS INSURANCE DOESN'T COVER LSCTA HRR UP AD LUKE AT BEDSIDE T/O DAY LEFT FINGER IV STOPPED FLUIDS D/T BOTHERING PT PT IS A VERY HARD STICK SO WANTED TO SAVE THE IV MUCH WE COULD GAVE FENTANYL T/O DAY AND NORCO ONCE BOTH SEEM TO HELP WITH PAIN CAN ONLY TOLERATE CLEAR LIQUIDS AT THIS TIME PT DID NOT WANT MORE THAN JELLO AND WATER CALL LIGHT IN REACH
[2020-04-08 20:00] VITALS: BP 132/89
--- NOTE | 2020-04-09 05:17 | NUR ---
PATIENT SLEPT WELL DURING THIS SHIFT. PT UP AD LUKE TO BATHROOM. PT C/O ABDOMINAL PAIN X2 AND RECEIVED FENTANYL 50MCG IV EACH TIME. PT SAID HE WAS ABLE TO GO BACK TO SLEEP AFTER EACH DOSE. PT DENIES NEEDS AT THIS TIME. WILL CONTINUE TO MONITOR.
[2020-04-09 08:00] VITALS: BP 111/66
[2020-04-09] MEDS ORDERED: PREDNISONE 10 M10 MG PO (09:14)
[2020-04-09] MEDS ORDERED: OMEPRAZOLE40 MG PO (09:14)
[2020-04-09] MEDS ORDERED: TRAMADOL 50 MG50 MG PO (09:14)
[2020-04-09 10:05] VITALS: BP 111/66
[2020-04-09 10:15] VITALS: BP 111/66
--- NOTE | 2020-04-09 10:17 | NUR ---
THIS NURSE AGREES WITH ASSESSMENT
--- NOTE | 2020-04-09 10:30 | NUR ---
PT DISCHARGED HOME WITH ALL BELONGIONGS, ACCOMPANIED BY HIS . PT HAS GOOD UNDERSTANDING OF DISCHARGE INSTRUCTIONS AND MEDICATIONS HE IS TO TAKE. SALINE LOCK REMOVED HUB INTACT. PT DENIED PAIN ON DISCHARGE.
--- NOTE | 2020-04-12 11:26 | CON ---
[address] [address] CONSULTATION Name: MARILYN OLEA Room: [address] IN M.R.#: [id number] Admission: 04/07/20 Attend Phys: Anson Lora Discharge: 04/09/20 Date of : 79 Report #: [id number] THIS REPORT FOR: cc: FAM - No family physician/PCP FAM - No family physician/PCP ~ Justo Nolan MD DATE OF SERVICE: 04/08/2020 HISTORY OF PRESENT ILLNESS: This is a pleasant 44-year-old gentleman with past medical history significant for Crohn's disease, who is presenting for evaluation. The patient has had Crohn's disease since 1996, he was initially diagnosed in [place] and moved to [facility] in early 2019. The patient was previously on Pentasa and 6-MP that he failed. He was on Remicade in the past and he had adequate response, but his insurance company changed and refused to pay for it, so he had to switch off of it. The patient was then switched to Humira, which he failed and then was switched over to Entyvio in 02/2019. The patient subsequently did not take any further doses of Entyvio because of the pandemic. Last year, the patient was switched over to Stelara and he claims he has received now full dose of Stelara. The patient reports he presented this time because of increasing abdominal pain and diarrhea. He does not report any signs of obstruction such as nausea, vomiting or weight loss. The patient denies any hematochezia. PAST MEDICAL HISTORY: Crohn's disease and history of small-bowel obstruction. PAST SURGICAL HISTORY: He had 3 resections in the past. FAMILY HISTORY: Mother has breast cancer. SOCIAL HISTORY: The patient denies smoking, alcohol or recreational drug use. REVIEW OF SYSTEMS: A comprehensive 10-point review of systems is negative except for what was mentioned in the HPI. PHYSICAL EXAMINATION: VITAL SIGNS: Temperature 36.6, pulse rate 76, respirations 17, blood pressure 144/91, pulse ox 95% on room air. GENERAL: The patient is alert, awake, oriented x 3. HEENT: Pupils are equal, round, reactive to light and accommodation. Mucous membranes are moist. There is no congestion. LUNGS: Clear to auscultation bilaterally. CARDIOVASCULAR: Rate and rhythm regular, S1, S2 present. ABDOMEN: Soft. There is no distention, guarding or rigidity. EXTREMITIES: Warm, [place] [address] CONSULTATION Name: MARILYN OLEA Saranya Room: [address]#: [id number] Admission: 04/07/20 Attend Phys: Anson Lora Discharge: 04/09/20 Date of : 79 Report #: [id number] LABORATORY DATA: Hemoglobin 14.0, hematocrit 40.9, platelet count 222, WBC count 7.4. Sodium 141, potassium 4.8, chloride 105, bicarbonate 25, BUN 10, creatinine 1.1, calcium 9.1. CRP is high at 57.6. Total bilirubin 0.4. AST 22, ALT 47, alkaline phosphatase 72. IMAGING: Abdominal x-ray persistently dilated small bowel loops with air fluid level in the mid abdomen consistent with bowel obstruction, these measured up to [address] abdomen and pelvis, segment of distal small bowel wall thickening near the cecum with increased enhancement and hyperemia associated with small bowel obstruction, small bowel measures 5.7 cm, location and appearance fairly similar with some decrease in small bowel distention compared to January. No definite abscess noted. ASSESSMENT AND PLAN: A pleasant 44-year-old male with longstanding history of stricture in Crohn's disease, presenting for evaluation. The patient has failed Pentasa and Humira in the past. He did have response to Remicade, but did not take it because of change in insurance company ____. I would recommend continuing steroids. Because of ongoing bowel obstruction, he is currently on methylprednisolone 62.5 mg q.8 hours. Depending on his response, I will rapidly taper it in a day or 2. I would also like to check for C. diff since he has been complaining of diarrhea as well. Outpatient, the patient will need therapeutic drug monitoring to evaluate the presence of Stelara drug and antibody levels. Thank you for this consultation. <ELECTRONICALLY SIGNED> By: Justo Nolan MD 04/12/20 1126 1212 [id number] Nolan MD /nt
== END 2020-04-09 10:30 | disposition home or self-care (01) | DRG 387 ==
LOC: M.ERS 19:24 → M.TBA-ER 23:34 → M.3W 23:34
PROVIDERS: Internal Medicine; Personal Emergency Response Attendant; ADMIT Internal Medicine; ATTEND Internal Medicine
DX: K50.012 Crohn's disease of small intestine with intestinal obstruction (principal); M19.90 Unspecified osteoarthritis, unspecified site; F12.90 Cannabis use, unspecified, uncomplicated; Z20.822 Contact with and (suspected) exposure to COVID-19; Z90.49 Acquired absence of other specified parts of digestive tract; Z88.8 Allergy status to other drugs, medicaments and biological substances; Z87.891 Personal history of nicotine dependence

== ENCOUNTER 2020-07-01 16:54 | Inpatient (IN) | payer OTHER ==
[~2020-07-01] VITALS: Ht 177.8 cm; Wt 94.3 kg
[2020-07-01 17:20] LABS: URINE BILIRUBIN NEGATIVE (Negative); URINE BLOOD NEGATIVE (Negative); URINE CLARITY CLEAR; URINE COLOR YELLOW; URINE GLUCOSE-RANDOM NEGATIVE (Negative); URINE KETONES NEGATIVE (Negative); URINE LEUKOCYTES-REFLEX NEGATIVE (Negative); URINE NITRITE-REFLEX NEGATIVE (Negative); URINE PROTEIN TRACE (Negative); URINE SPECIFIC GRAVITY 1.015 (1.005-1.030); URINE UROBILINOGEN 0.2 E.U./dl (0.2-1.0)
[2020-07-01 17:33] LABS: HEMATOCRIT 46.5 % (42.0-52.0); MCH 29.7 pg (26.0-34.0); MCHC 34.3 g/dL (28.0-37.0); MCV 86.6 fL (80.0-100.0); MPV 8.5 fl. (7.2-11.1); NUCLEATED RBCS 0 /100WBC; PLATELET COUNT* 268 thou/uL (150-400); RBC 5.38 mil/uL (4.50-6.00); WBC 10.1 thou/uL (4.0-11.0)
[2020-07-01 17:43] LABS: CALCIUM 9.1 mg/dL (8.5-10.1); CREATININE 1.2 mg/dL (0.6-1.3); POTASSIUM 4.3 mmol/L (3.5-5.1)
[2020-07-01 17:47] LABS: ALBUMIN 4.1 g/dL (3.4-5.0); TOTAL BILIRUBIN 0.6 mg/dL (<0.1-1.0)
[2020-07-01 17:59] LABS: ABSOLUTE EOSINOPHILS 0.1 thou/uL (0.0-0.7); ABSOLUTE LYMPHOCYTES 0.7 thou/uL (0.8-5.3); ABSOLUTE MONOCYTES 0.4 thou/uL (0.0-1.2); ABSOLUTE NEUTROPHILS 8.9 thou/uL (1.6-8.1); PLATELET ESTIMATE ADEQUATE
[2020-07-01 19:35] VITALS: BP 149/107
[2020-07-01 19:45] VITALS: BP 163/109
--- NOTE | 2020-07-02 07:59 | NUR ---
PATIENT ADMITTED TO ROOM 107 FROM THE ER AT APPROXIMATELY 1945. REPORT GIVEN FROM ER NURSE. PATIENT ORIENTED TO ROOM AND POLICIES. ASSESSMENT CHARTED. IV FLUIDS STARTED. NEW IV INSERTED IN RIGHT HAND-NS @ 100ML/HR. IV PAIN MEDICATION GIVEN PRN ORDERED AND CHARTED. GI CONSULTED THIS AM. PATIENT INSTRUCTED TO USE CALL LIGHT WHEN NEEDING ASSISTANCE. HOURLY ROUNDS MADE. WILL CONTINUE WITH PLAN OF CARE AND NURSING TO MONITOR.
[2020-07-02 08:00] VITALS: BP 126/81
--- NOTE | 2020-07-02 13:26 | NUR ---
THIS NURSE AGREES WITH ASSESSMENT
[2020-07-02 16:00] VITALS: BP 122/65
--- NOTE | 2020-07-02 18:48 | NUR ---
PATIENT RESTING IN BED. C/O ABDOMINAL PAIN. FENTANYL X3 GIVEN. IV TO RIGHT HAND, NORMAL SALINE INFUSING @100. DRESSING C/D/I. PATIENT WITH TWO BOWEL MOVEMENTS TODAY. STATES THAT HIS ABDOMEN PAIN IS DECREASING. CALL LIGHT WITHIN REACH. BED IN LOW/LOCKED POSITION. SIDE RAILS UP X2. NO QUESTIONS OR CONCERNS VOICED.
[2020-07-02 21:44] VITALS: BP 126/73
[2020-07-03 04:17] LABS: ABSOLUTE EOSINOPHILS 0.1 thou/uL (0.0-0.7); ABSOLUTE MONOCYTES 0.6 thou/uL (0.0-1.2); ABSOLUTE NEUTROPHILS 6.4 thou/uL (1.6-8.1); BASOPHILS 0.5 %; EOSINOPHILS 1.5 %; HEMATOCRIT 40.7 % (42.0-52.0); LYMPHOCYTES 12.6 %; MCH 29.7 pg (26.0-34.0); MCHC 33.6 g/dL (28.0-37.0); MCV 88.3 fL (80.0-100.0); MONOCYTES 7.1 %; MPV 9.7 fl. (7.2-11.1); NUCLEATED RBCS 0 /100WBC; POLYS 78.3 %; RBC 4.61 mil/uL (4.50-6.00); RDW-CV 14.8 % (10.5-14.5); WBC 8.2 thou/uL (4.0-11.0)
[2020-07-03 04:25] LABS: POTASSIUM 3.8 mmol/L (3.5-5.1)
[2020-07-03 04:37] LABS: HEMOGLOBIN 13.7 gm/dL (14.0-18.0); PLATELET COUNT* 189 thou/uL (150-400)
[2020-07-03 05:15] LABS: CALCIUM 8.6 mg/dL (8.5-10.1)
--- NOTE | 2020-07-03 06:41 | NUR ---
PATIENT HAS SLEPT WELL THROUGHOUT THE NIGHT. VSS ON RA. PAIN CONTROLLED WITH IV PAIN MEDICATION AND CHARTED. PATIENT UP AD-LUKE. IV IN RIGHT HAND-NS @ 100ML/HR. PATIENT HAS REMAINED NPO. PATIENT DID HAVE SEVERAL BM'S DURING THE DAY SHIFT ON 07/02/20 PER PATIENT. PATIENT INSTRUCTED TO USE CALL LIGHT WHEN NEEDING ASSISTANCE. HOURLY ROUNDS MADE. WILL CONTINUE WITH PLAN OF CARE AND NURSING TO MONITOR.
[2020-07-03 08:22] VITALS: BP 128/72
--- NOTE | 2020-07-03 10:19 | EKG ---
[place] [address] ELECTROCARDIOGRAM REPORT Name: MARILYN OLEA Room: [address] ADM IN ..#: [id number] Admission: 07/01/20 Attend Phys: Levy Monte, Discharge: Date of : 79 Date of Service: 07/01/20 1715 Report #: [id number] THIS REPORT FOR: //name// [facility] ED Test Date: 2020-07-01 Test Time: 17:15:07 Pat Name: MARILYN OLEA Department: Room: [facility] Gender: M Vp Organizational Development: : 1975 Requested By: Mustapha Allison Order Number: [id number] MD: Ryan Bernal Measurements Intervals [place] Rate: 92 P: 33 [place]: 157 QRS: 62 QRSD: 146 T: 15 QT: 405 QTc: 502 Interpretive Statements Sinus rhythm Probable left atrial enlargement Right bundle branch block Compared to ECG 04/07/2020 20:56:04 No significant changes Electronically Signed On 07-03-2020 10:18:59 CDT by Ryan Bernal [email or web address] <ELECTRONICALLY SIGNED> By: Ryan Bernal MD, [facility] 07/03/20 1018 1715 1715 Ryan Bernal MD, [facility] /EPI
[2020-07-03 14:33] VITALS: BP 128/72
[2020-07-03] MEDS ORDERED: PREDNISONE 10 M10 M1 PO (14:56)
[2020-07-03 15:05] VITALS: BP 128/72
--- NOTE | 2020-07-03 15:07 | NUR ---
PATIENT HAS REMAINED A&OX4, PLEASANT AND COOPERATIVE WITH CARES THIS SHIFT. PATIENT HAS TOLERATED DIET AND ANXIOUS TO GO HOME. PATIENT HAS DENIED PAIN/N/V AND REPORTS HAVING HAD BM THIS MORNING. IV REMOVED. PATIENT GIVEN DISCHARGE INSTRUCTIONS, DENIES PAIN/QUESTIONS/CONCERNS PRIOR TO DISCHARGE. PATIENT AMBULATED OFF UNIT WITH PERSONAL BELONGINGS, ACCOMPANIED BY SHELLY AT APPROX. 1505.
== END 2020-07-03 15:05 | disposition home or self-care (01) | DRG 387 ==
LOC: M.ERS 16:54 → M.TBA-ER 18:28 → M.ORTHSURG 18:28
PROVIDERS: Family Medicine; ADMIT Internal Medicine; ATTEND Internal Medicine
DX: K50.912 Crohn's disease, unspecified, with intestinal obstruction (principal); Z20.822 Contact with and (suspected) exposure to COVID-19; Z90.49 Acquired absence of other specified parts of digestive tract; Z79.899 Other long term (current) drug therapy; Z88.8 Allergy status to other drugs, medicaments and biological substances; Z87.891 Personal history of nicotine dependence

== ENCOUNTER 2020-07-26 10:41 | Emergency (ER) | payer OTHER ==
[~2020-07-26] VITALS: Ht 177.8 cm; Wt 95.3 kg
[2020-07-26] MEDS ORDERED: PAROEX473 ML PO (11:03)
[2020-07-26] MEDS ORDERED: ULTRAM50 MG PO (11:03)
[2020-07-26] MEDS ORDERED: AMOXICILLIN 50500 MG PO (11:03)
[2020-07-26 11:21] VITALS: BP 136/108
== END 2020-07-26 11:22 | disposition home or self-care (01) ==
LOC: M.ERS 10:41
DX: K04.7 Periapical abscess without sinus (principal); Z88.6 Allergy status to analgesic agent; Z88.8 Allergy status to other drugs, medicaments and biological substances

== ENCOUNTER 2020-08-02 18:01 | Emergency (ER) | payer OTHER ==
[~2020-08-02] VITALS: Ht 160 cm; Wt 90.7 kg
[~2020-08-02 18:01] MED LIST changes: +AMOXICILLIN 50500 MG PO; +PAROEX473 ML PO; +ULTRAM50 MG PO
[2020-08-02 18:08] VITALS: BP 154/104
[2020-08-02 18:50] LABS: ABSOLUTE EOSINOPHILS 0.3 thou/uL (0.0-0.7); ABSOLUTE LYMPHOCYTES 0.7 thou/uL (0.8-5.3); ABSOLUTE MONOCYTES 0.4 thou/uL (0.0-1.2); ABSOLUTE NEUTROPHILS 4.9 thou/uL (1.6-8.1); BASOPHILS 0.4 %; EOSINOPHILS 5.1 %; HEMATOCRIT 43.9 % (42.0-52.0); HEMOGLOBIN 14.7 gm/dL (14.0-18.0); LYMPHOCYTES 10.3 %; MCH 30.1 pg (26.0-34.0); MCHC 33.5 g/dL (28.0-37.0); MCV 89.9 fL (80.0-100.0); MPV 8.4 fl. (7.2-11.1); NUCLEATED RBCS 0 /100WBC; PLATELET COUNT* 221 thou/uL (150-400); POLYS 77.2 %; RBC 4.89 mil/uL (4.50-6.00); RDW-CV 16.2 % (10.5-14.5); WBC 6.3 thou/uL (4.0-11.0)
[2020-08-02 18:56] LABS: CALCIUM 8.6 mg/dL (8.5-10.1); CREATININE 1.1 mg/dL (0.6-1.3); POTASSIUM 3.9 mmol/L (3.5-5.1)
[2020-08-02 19:00] LABS: ALBUMIN 3.8 g/dL (3.4-5.0); TOTAL BILIRUBIN 0.9 mg/dL (<0.1-1.0); TOTAL PROTEIN 7.4 g/dL (6.4-8.2)
--- NOTE | 2020-08-03 11:50 | EKG ---
[place] [address] ELECTROCARDIOGRAM REPORT Name: MARILYN OLEA Room: [facility]#: [id number] Admission: 08/02/20 Attend Phys: Discharge: 08/02/20 Date of : 79 Date of Service: 08/02/201821 Report #: [id number] THIS REPORT FOR: //name// [facility] ED Test Date: 2020-08-02 Test Time: 18:22:26 Pat Name: MARILYN OLEA Department: Room: Gender: Clinical Partner: CLARK : 1975 Requested By: Arelis Roman Order Number: [id number] MD: Demetri Francois Measurements Intervals [place] Rate: 91 P: 30 DC: 163 QRS: 45 QRSD: 153 T: -8 QT: 403 QTc: 496 Interpretive Statements Sinus rhythm Right bundle branch block Baseline wander in lead(s) V3 Compared to ECG 07/01/2020 17:15:07 No significant changes Electronically Signed On 08-03-2020 11:50:38 CDT by Demetri Francois [email or web address] <ELECTRONICALLY SIGNED> By: Demetri Francois MD, FAC 08/03/20 1150 1822 1822 Demetri Francois MD, [facility] /EPI
== END 2020-08-02 21:13 | disposition left against medical advice (07) ==
LOC: M.ERS 18:01
PROVIDERS: Nurse Practitioner Family
DX: K56.609 Unspecified intestinal obstruction, unspecified as to partial versus complete obstruction (principal)

== ENCOUNTER 2021-02-08 15:35 | Inpatient (IN) | payer OTHER ==
[~2021-02-08] VITALS: Ht 177.8 cm; Wt 81.6 kg
[2021-02-08 15:48] VITALS: BP 141/109
[2021-02-08 17:12] LABS: ABSOLUTE EOSINOPHILS 0.1 thou/uL (0.0-0.7); ABSOLUTE MONOCYTES 0.6 thou/uL (0.0-1.2); ABSOLUTE NEUTROPHILS 6.9 thou/uL (1.6-8.1); BASOPHILS 0.2 %; HEMATOCRIT 50.7 % (42.0-52.0); HEMOGLOBIN 17.1 gm/dL (14.0-18.0); LYMPHOCYTES 11.8 %; MCH 31.5 pg (26.0-34.0); MCHC 33.7 g/dL (28.0-37.0); MCV 93.4 fL (80.0-100.0); MPV 8.9 fl. (7.2-11.1); NUCLEATED RBCS 0 /100WBC; PLATELET COUNT* 237 thou/uL (150-400); RBC 5.43 mil/uL (4.50-6.00); RDW-CV 16.5 % (10.5-14.5); WBC 8.6 thou/uL (4.0-11.0)
[2021-02-08 17:21] LABS: CALCIUM 9.6 mg/dL (8.5-10.1); CREATININE 1.1 mg/dL (0.6-1.3); POTASSIUM 4.5 mmol/L (3.5-5.1)
[2021-02-08 17:26] LABS: TOTAL BILIRUBIN 1.4 mg/dL (<0.1-1.0); TOTAL PROTEIN 8.1 g/dL (6.4-8.2)
[2021-02-09] VITALS: BP 129/87
[2021-02-09 02:37] LABS: ALBUMIN 3.6 g/dL (3.4-5.0); CALCIUM 8.9 mg/dL (8.5-10.1); CREATININE 1.1 mg/dL (0.6-1.3); POTASSIUM 4.4 mmol/L (3.5-5.1); TOTAL BILIRUBIN 1.3 mg/dL (<0.1-1.0); TOTAL PROTEIN 7.3 g/dL (6.4-8.2)
[2021-02-09 05:20] LABS: ABSOLUTE LYMPHOCYTES 0.7 thou/uL (0.8-5.3); ABSOLUTE MONOCYTES 0.2 thou/uL (0.0-1.2); ABSOLUTE NEUTROPHILS 5.2 thou/uL (1.6-8.1); BASOPHILS 0.1 %; EOSINOPHILS 0.3 %; HEMATOCRIT 48.2 % (42.0-52.0); HEMOGLOBIN 16.3 gm/dL (14.0-18.0); LYMPHOCYTES 12.1 %; MCH 31.7 pg (26.0-34.0); MCHC 33.8 g/dL (28.0-37.0); MCV 93.7 fL (80.0-100.0); MONOCYTES 3.4 %; MPV 9.2 fl. (7.2-11.1); NUCLEATED RBCS 0 /100WBC; PLATELET COUNT* 248 thou/uL (150-400); POLYS 84.1 %; RBC 5.14 mil/uL (4.50-6.00); RDW-CV 16.3 % (10.5-14.5); WBC 6.2 thou/uL (4.0-11.0)
--- NOTE | 2021-02-09 06:44 | NUR ---
PT STATED HE HAD LG LOOSE BM THAT DECREASED THE PAIN LEVEL HE HAD IN HIS ABD
[2021-02-09 08:00] VITALS: BP 118/86
[2021-02-09] MEDS ORDERED: OXYCODONE HCL 55 MG PO (12:12)
[2021-02-09] MEDS ORDERED: PREDNISONE 10 M10 MG PO (12:12)
[2021-02-09 12:55] VITALS: BP 118/86
[2021-02-09 13:03] VITALS: BP 131/80
== END 2021-02-09 13:03 | disposition home or self-care (01) | DRG 387 ==
LOC: M.ERS 15:35 → M.TBA-ER 19:51
PROVIDERS: Internal Medicine Gastroenterology; Physician Assistant; Surgery; ADMIT Internal Medicine; ATTEND Internal Medicine
DX: K50.012 Crohn's disease of small intestine with intestinal obstruction (principal); Z88.8 Allergy status to other drugs, medicaments and biological substances; Z87.891 Personal history of nicotine dependence; Z20.822 Contact with and (suspected) exposure to COVID-19; Z79.899 Other long term (current) drug therapy

== ENCOUNTER 2021-04-01 23:46 | Inpatient (IN) | payer OTHER ==
[~2021-04-01] VITALS: Ht 177.8 cm; Wt 89.4 kg
[2021-04-01 23:46] VITALS: BP 142/98
[~2021-04-01 23:46] MED LIST changes: +OXYCODONE HCL 55 MG PO
[2021-04-02 00:38] LABS: ABSOLUTE LYMPHOCYTES 0.9 thou/uL (0.8-5.3); ABSOLUTE MONOCYTES 0.3 thou/uL (0.0-1.2); HEMOGLOBIN 16.4 gm/dL (14.0-18.0); MPV 8.5 fl. (7.2-11.1); NUCLEATED RBCS 0 /100WBC
[2021-04-02 00:42] LABS: ABSOLUTE EOSINOPHILS 0.1 thou/uL (0.0-0.7); ABSOLUTE NEUTROPHILS 6.4 thou/uL (1.6-8.1); BASOPHILS 0.2 %; EOSINOPHILS 1.1 %; HEMATOCRIT 47.8 % (42.0-52.0); LYMPHOCYTES 11.6 %; MCH 32.1 pg (26.0-34.0); MCHC 34.3 g/dL (28.0-37.0); MCV 93.6 fL (80.0-100.0); PLATELET COUNT* 272 thou/uL (150-400); POLYS 83.1 %; RDW-CV 15.7 % (10.5-14.5); WBC 7.7 thou/uL (4.0-11.0)
[2021-04-02 00:45] LABS: CALCIUM 8.7 mg/dL (8.5-10.1); POTASSIUM 4.1 mmol/L (3.5-5.1)
[2021-04-02 00:50] LABS: ALBUMIN 3.9 g/dL (3.4-5.0); TOTAL PROTEIN 7.7 g/dL (6.4-8.2)
[2021-04-02 02:08] LABS: URINE BLOOD NEGATIVE (Negative); URINE CLARITY CLEAR; URINE COLOR DARK YELLOW; URINE GLUCOSE-RANDOM NEGATIVE (Negative); URINE KETONES 1+ (Negative); URINE LEUKOCYTES-REFLEX NEGATIVE (Negative); URINE NITRITE-REFLEX NEGATIVE (Negative); URINE PROTEIN 1+ (Negative); URINE SPECIFIC GRAVITY >= 1.030 (1.005-1.030); URINE UROBILINOGEN 0.2 E.U./dl (0.2-1.0)
[2021-04-02 02:09] LABS: URINE BILIRUBIN 2+ (Negative)
[2021-04-02 02:10] LABS: ICTOTEST (BILI CONFIRMATORY) Negative (Negative)
[2021-04-02 05:13] VITALS: BP 130/87
[2021-04-02 05:30] VITALS: BP 122/85
[2021-04-02 08:00] VITALS: BP 123/86
--- NOTE | 2021-04-02 12:42 | NUR ---
Pt is admitted for Crohn's Colitis on 04/02/21. Pt is alert and oriented x3. Pt reports he lives in an apartment with his with no steps to enter but several steps leading up to his bedroom inside their apartment. Pt reports he is independent in ADL's and Mobility. Pt reports no hx of HH/SNF/DME. Pt reports he does not have a PCP. Pt reports he fills his medications at [facility] on [address] CM to continue to follow pt for discharge planning.
[2021-04-02 16:40] VITALS: BP 140/97
--- NOTE | 2021-04-02 18:01 | NUR ---
PT CONTINUES TO HAVE ABD PAIN AND REMAINS NPO. PT HAS IV FLUIDS INFUSING WITHOUT DIFFICULTY. PT UP AND AMBULATES WITH STEADY GAIT TO THE REST ROOM. VSS AFEBRILE. WILL CONTINUE TO MONITOR PLAN OF CARE.
[2021-04-03] VITALS: BP 145/97
[2021-04-03 04:55] LABS: HEMATOCRIT 39.1 % (42.0-52.0); MCH 32.3 pg (26.0-34.0); MCHC 34.3 g/dL (28.0-37.0); MCV 94.1 fL (80.0-100.0); MPV 9.1 fl. (7.2-11.1); RBC 4.15 mil/uL (4.50-6.00); RDW-CV 15.4 % (10.5-14.5); WBC 4.5 thou/uL (4.0-11.0)
[2021-04-03 05:13] LABS: CALCIUM 8.1 mg/dL (8.5-10.1); CREATININE 0.8 mg/dL (0.6-1.3); POTASSIUM 4.3 mmol/L (3.5-5.1)
[2021-04-03 05:28] LABS: HEMOGLOBIN 13.4 gm/dL (14.0-18.0)
[2021-04-03 08:00] VITALS: BP 167/89
[2021-04-03 16:00] VITALS: BP 127/85
--- NOTE | 2021-04-03 18:11 | NUR ---
PATIENT IS A+OX4, ABLE TO VERBALIZE HIS NEEDS AND WANTS, HAD A SMALL BOWEL FOLLOW THROUGH TODAY AND HAS HAD MUTLIPLE LOOSE/SOFT BM'S AFTER, RECIEVED ORDER FROM DR GARDNER FROM [facility] TO UPGRADE DIET TO FULL LIQUIDS, PATIENT HAS C/O PAIN THROUGHOUT THE DAY THAT IS RELIEVED BY MEDICATION, HE HAS REQUESTED PAIN MEDS EVERY 3-4 HOURS FOR THE FIRST PART OF THE DAY. LCTA, BS+X4, NO EDEMA TO EXTREMEITES. PATIENT IS UP A LUKE TO REST ROOM. CALL LIGHT IS IN REACH. WILL CONTINUE WITH THE PLAN OF CARE.
[2021-04-03 20:23] VITALS: BP 123/73
[2021-04-04] VITALS: BP 146/91
--- NOTE | 2021-04-04 04:03 | NUR ---
PT A&OX4, VSS ON ROOM AIR, MED/SURG STATUS, IV FLUIDS INFUSING ORDERED, PT UP AD LUKE. PRN DILAUDID REQUESTED EVERY 3 HOURS, ADMINISTERED ORDERED. PT RESTING IN BED, WILL CONTINUE TO MONITOR.
[2021-04-04 07:54] VITALS: BP 113/79
[2021-04-04 12:11] LABS: HEMATOCRIT 39.7 % (42.0-52.0); HEMOGLOBIN 13.5 gm/dL (14.0-18.0); MCH 32.5 pg (26.0-34.0); MCHC 34.1 g/dL (28.0-37.0); MCV 95.3 fL (80.0-100.0); MPV 8.9 fl. (7.2-11.1); NUCLEATED RBCS 0 /100WBC; PLATELET COUNT* 219 thou/uL (150-400); RBC 4.16 mil/uL (4.50-6.00); RDW-CV 15.9 % (10.5-14.5); WBC 4.3 thou/uL (4.0-11.0)
[2021-04-04 12:32] LABS: CALCIUM 8.2 mg/dL (8.5-10.1); CREATININE 0.8 mg/dL (0.6-1.3); POTASSIUM 3.6 mmol/L (3.5-5.1)
[2021-04-04 12:42] LABS: ABSOLUTE LYMPHOCYTES 0.6 thou/uL (0.8-5.3); ABSOLUTE MONOCYTES 0.3 thou/uL (0.0-1.2); ABSOLUTE NEUTROPHILS 3.4 thou/uL (1.6-8.1)
[2021-04-04 12:43] LABS: PLATELET ESTIMATE INCREASED
[2021-04-04 16:00] VITALS: BP 111/71; BP 116/54
[2021-04-04 19:30] VITALS: BP 115/70
[2021-04-05] VITALS: BP 108/60
--- NOTE | 2021-04-05 03:56 | NUR ---
PT A&OX4, VSS ON ROOM AIR, IV SALINE LOCKED, UP AD LUKE, FULL LIQUID DIET. PRN IV AND PO PAIN MEDS REQUESTED AND GIVEN ORDERED. PAIN BETTER CONTROLED THIS NIGHT THAN THE LAST. PT SLEEPING WELL, WILL CONTINUE TO MONITOR.
[2021-04-05 05:20] LABS: HEMATOCRIT 41.6 % (42.0-52.0); MCH 31.8 pg (26.0-34.0); MCHC 33.7 g/dL (28.0-37.0); MCV 94.4 fL (80.0-100.0); MPV 8.7 fl. (7.2-11.1); RBC 4.41 mil/uL (4.50-6.00); RDW-CV 15.7 % (10.5-14.5); WBC 5.5 thou/uL (4.0-11.0)
[2021-04-05 05:35] LABS: ALBUMIN 3.1 g/dL (3.4-5.0); CALCIUM 8.4 mg/dL (8.5-10.1); CREATININE 0.7 mg/dL (0.6-1.3); MAGNESIUM 2.1 mg/dL (1.8-2.4); POTASSIUM 3.6 mmol/L (3.5-5.1); TOTAL BILIRUBIN 0.4 mg/dL (<0.1-1.0); TOTAL PROTEIN 6.6 g/dL (6.4-8.2)
[2021-04-05] MEDS ORDERED: PREDNISONE 10 M10 M1 PO (08:04)
[2021-04-05] MEDS ORDERED: HYDROCODON-ACE1 EAC7 PO (08:04)
[2021-04-05 08:45] VITALS: BP 117/87
[2021-04-05 11:07] VITALS: BP 117/87
--- NOTE | 2021-04-05 12:41 | NUR ---
Discharge orders written for today - no d/c needs identified.
== END 2021-04-05 14:10 | disposition home or self-care (01) | DRG 389 ==
LOC: M.ERS 23:46 → M.2W 04-02 03:35 → M.TBA-ER 04-02 03:35 → M.2W 04-02 03:35
PROVIDERS: Internal Medicine; Personal Emergency Response Attendant; Surgery; ADMIT Internal Medicine; ATTEND Internal Medicine
DX: K56.600 Partial intestinal obstruction, unspecified as to cause (principal); K50.90 Crohn's disease, unspecified, without complications; I10 Essential (primary) hypertension; F17.210 Nicotine dependence, cigarettes, uncomplicated; E86.0 Dehydration; Z20.822 Contact with and (suspected) exposure to COVID-19; Z90.49 Acquired absence of other specified parts of digestive tract; Z23 Encounter for immunization; Z79.899 Other long term (current) drug therapy; Z88.6 Allergy status to analgesic agent; Z88.5 Allergy status to narcotic agent; Z83.1 Family history of other infectious and parasitic diseases